=== PATIENT | female | born 2000 | race Caucasian/White ===

== ENCOUNTER 2022-12-14 17:36 | Inpatient (IN) | payer BC ==
[2022-12-14] MEDS ORDERED: MAGNESIUM HYDROXIDE 2,400 MG/30 ML CUP PO PRN (17:51)
[2022-12-14] MEDS ORDERED: MAG HYDROX/AL HYDROX/SIMETH 30 ML CUP PO PRN (17:51)
[2022-12-14] MEDS: hydrOXYzine pamoate 25 MG CAP PO PRN (22:05)
[2022-12-14] MEDS: busPIRone HCl 5 MG TAB PO SCH (22:05)
[2022-12-14] MEDS ORDERED: LORazepam 2 MG/ML INJ IM PRN (22:51)
[2022-12-14] MEDS: LORazepam 1 MG TAB PO PRN (23:17)
[2022-12-15] MEDS: ACETAMINOPHEN TAB 325 MG TAB PO PRN ×2 (00:37→08:55)
--- NOTE | 2022-12-15 04:03 | P.PN ---
Progress Note - Text Progress Note Date: 12/14/22 patient is heavily medicated and could not be evaluated at this time
[2022-12-15] MEDS: busPIRone HCl 5 MG TAB PO SCH ×2 (08:54→23:20)
[2022-12-15] MEDS: NALTREXONE HCL 50 MG TAB PO SCH (08:54)
[2022-12-15] MEDS: NICOTINE 14MG/24HR PATCH TRANSDERM SCH (08:55)
[2022-12-15] MEDS: LORazepam 1 MG TAB PO PRN ×2 (09:08→23:19)
--- NOTE | 2022-12-15 09:48 | P.HP ---
Psychiatric H&P - . H&P Date: 12/15/22 History & Physical: Allergies Allergy/AdvReac Type Severity Reaction Status Date / Time No Known Allergies Allergy Verified 12/14/22 17:48 Vital Signs Temp 98.3 F 12/14/22 21:49 Pulse 90 12/15/22 06:08 Resp BP 111/73 12/15/22 06:08 Pulse Ox 100 12/14/22 21:49 FiO2 Intake & Output 12/14/22 12/15/22 12/15/22 18:59 06:59 18:59 Weight 47 kg 48.081 kg 12/15/22 09:39 This is a psychiatric evaluation on Sravanthi Graham who is a 22-year-old female with a history of eating disorder Patient was transferred from [place] where she was brought to the ER after expressing suicidal ideations and plans Patient is very tearful and breaks down frequently and has difficulty giving adequate history Patient reports that she is been dealing with eating disorder since she was 8 years old She says that she is lost about 80 pounds and the for a while complaining about not being able to eat when she went to the dining room and was yelled by one of the other patients She blamed the patient for not letting her it and states that now the kitchen is closed She also admits that she has a tendency to exercise and indulge in bulimic behavior She is also on psychostimulants including Vyvanse and Adderall at the time of admission which she claims that her psychiatrist was giving her for depression and that it does not affect her eating disorder She says that she currently works in the bank as a campus chaplain and lives with a roommate She says that she is finished college and has no intention of going back She says that she is close to her mother who also lives in town She reports that she is mainly here because she has been using cannabis on a daily basis and that there is no help to be able to control her addiction Past history personal and social history Patient is unable to give any details due to her frequent crying spells and breaking down She admits however that she's been in treatment since age 8 She continues to rationalize and intellectualize about her taking psychostimulants Further details will be collected as the patient becomes more cooperative and able to focus on the questions asked Mental status examination: General Appearance: Patient appears to be stated age is alert, directable, and attempts to cooperate. Patient appears to have fair hygiene issue and curled up on the chair and continues to stop with poor eye contact Behavior: Patient is sitting up curled up and tearful Speech: Patient's speech is fluent with preoccupation and complaints about the other patient that would not let her eat Mood/Affect: Patient reports their mood is depressed and anxious, affect is congruent and constricted. Suicidality/Homicidality: Patient denies having any homicidal ideation intent or plan. Denies any suicidal ideations intent or plan at this time Perceptions: Patient denies any visual hallucinations and denies any auditory hallucinations Though content/process: There is evidence of the somatic delusions and possibly distorted body image patient appears to be rationalizing intellectualizing and is projecting Memory and concentration: AOX3, grossly intact for the purposes of this session. Can spell "WORLD" backwards Judgment and insight: poor STRENGTHS/WEAKNESSES: strength is that patient is resilient. Weakness is that patient has poor judgment and is impulsive INTELLECT: average IMPRESSIONS: Major depressive disorder recurrent acute Rule out persistent pervasive depressive disorder/dysthymia Eating disorder unspecified Personality disorder with cluster B traits PLAN: -Patient is admitted under voluntary status to [facility]HU for stabilization of psychiatric symptoms and safety. -Medications : The patient is currently on buspirone and hydroxyzine when necessary which will be continued at this time Patient was offered Remeron at bedtime which she declined Patient at this time refuses any other new medication to be started She did not seem to be too upset when was told that stimulants would not be continued -Ativan and Haldol PRN for agitation/aggression -Patient was informed of the risks, benefits and side effects of the medication and patient verbally consented to taking the medications. -Internal Medicine consult to perform medical evaluation and physical. -NRT - nicotine patch -SW on board for discharge planning. Encourage patient to participate in groups to work on coping skills. Jc Dempsey M.D. 12/15/2022
[2022-12-15] MEDS: IBUPROFEN 400 MG TAB PO PRN (12:55)
[2022-12-15] MEDS: hydrOXYzine pamoate 25 MG CAP PO PRN (23:20)
[2022-12-15 23:31] LABS: Chol/HDL Ratio 2.43 Ratio; LDL Cholesterol,Calculated 72.8 mg/dL (0.0-131.0); VLDL Calculation 13.56 mg/dL (5.00-40.00)
[2022-12-16] MEDS: NICOTINE 14MG/24HR PATCH TRANSDERM SCH (08:14)
[2022-12-16] MEDS: NALTREXONE HCL 50 MG TAB PO SCH (08:14)
[2022-12-16] MEDS: busPIRone HCl 5 MG TAB PO SCH (08:14)
[2022-12-16] MEDS: ARIPiprazole 5 MG TAB PO SCH (12:03)
--- NOTE | 2022-12-16 12:23 | P.PN ---
Progress Note - Text Progress Note Date: 12/16/22 Interval history: Patient was seen today and was agreeable to be seen by marine underwriter today. Patient was interacting with other patients in the group room. She appeared to be fairly pleasant during interaction. She spoke about using a significant amount of cannabis before coming in the hospital. States that she chronically feels suicidal and states that she was discharged to early from the previous hospital. She claimed that she overdosed on trazodone to get admitted back into the psychiatric unit. States that she is getting a lot out of the unit at this time and finding therapy helpful. She claims that she is still feeling anxious at times, states that her mood is still labile during the day. We spoke about switching onto a mood stabilizer which patient was okay with trying Abilify today. She claimed that she is able to sleep fairly at nighttime. She remains optimistic about her treatment. Claims her appetite is fair. At this time she is denying any current suicidal or homicidal ideation intent or plan. Denying any auditory or visual hallucinations. Mental status examination: General Appearance: [Patient appears to be fairly thin, well-groomed, stated age is alert, directable, and attempts to be cooperative.] Behavior: [Patient is calmly seated without any agitated behavior.] Times to cooperate. Speech: Patient's speech is fluent and nonpressured. Mood/Affect: Mood is improving mildly, affect is congruent and constricted. Suicidality/Homicidality: Patient denies having any suicidal or homicidal ideation intent or plan. Perceptions: Patient denies any visual hallucinations [and denies any auditory hallucinations] Though content/process: [There is no evidence of any delusional thought content and thought process is linear and goal-directed.] Focused on her treatment and medications. Memory and concentration: AOX3, grossly intact for the purposes of this session Judgment and insight: Improving mildly Assessment: Major depressive disorder recurrent without psych features Eating disorder unspecified cannabis use disorder severe borderline personality disorder nicotine dependence PLAN: -Patient is admitted under voluntary status to [facility] for stabilization of psychiatric symptoms and safety. -Medications : increase buspirone to 10 mg bid for anxiety, hydroxyzine when necessary for anxiety. continue with naltrexone 50 mg daily for cravings/impulsivity. abilify 2.5 mg daily for mood stabilization. trazodone 50 mg qhs for insomnia/mood. -Ativan and Haldol PRN for agitation/aggression -NRT - nicotine patch -SW on board for discharge planning. Encourage patient to participate in groups to work on coping skills. likely discharge in 1-2 days to her grandmothers LILA thomas looking into request by patient to go to [facility] program in [place].
[2022-12-16 12:44] VITALS: BMI 18.1
[2022-12-16] MEDS: NICOTINE GUM (POLACRILEX) 2 MG GUM BUCCAL PRN ×2 (13:41→18:29)
[2022-12-16] MEDS ORDERED: traZODone HCL 50 MG TAB PO SCH (21:00)
[2022-12-16] MEDS: busPIRone HCl 10 MG TAB PO SCH (21:36)
[2022-12-16] MEDS: LORazepam 1 MG TAB PO PRN (21:38)
[2022-12-16] MEDS: hydrOXYzine pamoate 25 MG CAP PO PRN (21:38)
[2022-12-17] MEDS: ARIPiprazole 5 MG TAB PO SCH (09:14)
[2022-12-17] MEDS: busPIRone HCl 10 MG TAB PO SCH ×2 (09:21→22:22)
[2022-12-17] MEDS: NALTREXONE HCL 50 MG TAB PO SCH (09:22)
[2022-12-17] MEDS: NICOTINE 14MG/24HR PATCH TRANSDERM SCH ×2 (09:22→10:14)
[2022-12-17] MEDS: IBUPROFEN 400 MG TAB PO PRN (09:30)
--- NOTE | 2022-12-17 09:58 | P.PN ---
Progress Note - Text Progress Note Date: 12/17/22 Interval history: Patient was seen today and was agreeable to be seen by writer producer today. Patient claims that she had a headache this morning. She states she did not sleep well last night and needed and Ativan to sleep due to many new patients being admitted overnight. She claims that she is feeling a bit better today claims that she was a little bit more stable with her mood throughout the day. Claims that she is tolerating the Abilify fairly well. States that she is trying to quit groups and participated best she can. States that she is incontinent in the routine, eating and also showering. We spoke about her medications and I answer questions. She remains optimistic about her treatment. Claims her appetite is fair. At this time she is denying any current suicidal or homicidal ideation intent or plan. Denying any auditory or visual hallucinations. Mental status examination: General Appearance: Patient appears to be fairly thin, well-groomed, stated age is alert, directable, and attempts to be cooperative. Behavior: Patient is calmly seated without any agitated behavior. Attempts to cooperate. Speech: Patient's speech is fluent and nonpressured. Mood/Affect: Mood is improving mildly, affect is congruent and constricted. Suicidality/Homicidality: Patient denies having any suicidal or homicidal ideation intent or plan. Perceptions: Patient denies any visual hallucinations and denies any auditory hallucinations Though content/process: There is no evidence of any delusional thought content and thought process is linear and goal-directed. Memory and concentration: AOX3, grossly intact for the purposes of this session Judgment and insight: Improving mildly Assessment: Major depressive disorder recurrent without psych features Eating disorder unspecified cannabis use disorder severe borderline personality disorder nicotine dependence PLAN: -Patient is admitted under voluntary status to [facility] for stabilization of psychiatric symptoms and safety. -Medications : buspirone 10 mg bid for anxiety, hydroxyzine when necessary for anxiety. continue with naltrexone 50 mg daily for cravings/impulsivity. increase abilify 5 mg daily for mood stabilization. d/c trazodone due to patient request and replace with remeron 15 mg qhs for insomnia/mood. -Ativan and Haldol PRN for agitation/aggression -NRT - nicotine patch -SW on board for discharge planning. Encourage patient to participate in groups to work on coping skills. likely discharge in 2-3 days to her grandmothers house[facility]ILA looking into request by patient to go to [facility] program in [place].
[2022-12-17] MEDS: NICOTINE GUM (POLACRILEX) 2 MG GUM BUCCAL PRN (14:27)
[2022-12-17] MEDS: MIRTAZAPINE 15 MG TAB PO SCH (22:22)
--- NOTE | 2022-12-18 06:20 | P.MDCNMH ---
History of Present Illness H&P Date: 12/18/22 Chief Complaint: Medical evaluation 22-year-old female she is coming in for evaluation due to depression and eating disorder she admits to both bulimia and anorexia she denies any suicidal ideation. Denies any hallucinations. The patient currently denies any medical concerns , denies any fever, chills, cough, sore throat, chest pain , trouble breathing , nausea , vomiting, abd pain , changes in urinary or bowel habits. She admits to tobacco smoking and occasional marijuana claims to be sober from alcohol for about a year review of systems Pertinent positives as noted in HPI. All other systems were reviewed and are negative on exam Constitutional: No acute distress Eyes: Anicteric sclerae, moist conjunctiva, Pupils equal round reactive to light Lungs: Clear to auscultation Clear to percussion Normal respiratory effort, no accessory muscle use Cardiovascular: Heart regular in rate and rhythm, No murmurs, gallops, or rubs No peripheral edema Abdominal: Soft Nontender, no guarding, rebound or rigidity Abdomen moving with respiration Normoactive bowel sounds Extremities: Erythema with sunburn effect over bilateral upper extremity in her lower extremity No clubbing Pedal pulses intact and symmetrical Radial pulses intact and symmetrical No calf tenderness Psychiatric: Alert and oriented to person, place and time Neuro Muscles Strength 5/5 in all 4 extremities Sensation to light touch grossly present throughout Past Medical History Additional Past Medical History / Comment(s): Malnutrition due to bulimia, Factor 5 clotting disorder, pancreatitis, mobility issues due to malnutrition. History of Any Multi-Drug Resistant Organisms: None Reported Past Surgical History: Unable to Obtain Past Anesthesia/Blood Transfusion Reactions: Unable to Obtain Past Psychological History: Anxiety, Depression Smoking Status: Current every day smoker Past Alcohol Use History: None Reported Past Drug Use History: Cocaine, Heroin, IV Drug Use, Marijuana, Opiates Medications and Allergies Allergies Allergy/AdvReac Type Severity Reaction Status Date / Time No Known Allergies Allergy Verified 12/14/22 17:48 Cranial Nerve Examination - Cranial Nerves Cranial Nerve II- Optic: Intact Cranial Nerve III- Oculomotor: Intact Cranial Nerve IV- Trochlear: Intact Cranial Nerve V- Trigeminal: Intact Cranial Nerve - Abducens: Intact Cranial Nerve VII- Facial: Intact Cranial Nerve VIII- Auditory: Intact Cranial Nerve IX- Glossopharyngeal: Intact Cranial Nerve X- Vagus: Intact Cranial Nerve XI- Accessory: Intact Cranial Nerve XII- Hypoglossal: Intact Assessment and Plan Assessment: Eating disorders bulimia and anorexia Depression Management per psych Tobacco smoking Counseled to quit smoking Nicotine replacement therapy offered Blood work reviewed Lipid profile unremarkable HDL 60 TSH 0.6 unremarkable Stable from medical standpoint Thank you for this consultation
[2022-12-18] MEDS: NICOTINE 14MG/24HR PATCH TRANSDERM SCH (08:55)
[2022-12-18] MEDS: NALTREXONE HCL 50 MG TAB PO SCH (08:56)
[2022-12-18] MEDS: ARIPiprazole 5 MG TAB PO SCH (08:56)
[2022-12-18] MEDS: busPIRone HCl 10 MG TAB PO SCH ×2 (08:56→22:26)
[2022-12-18] MEDS: NICOTINE GUM (POLACRILEX) 2 MG GUM BUCCAL PRN ×2 (09:40→18:25)
--- NOTE | 2022-12-18 10:13 | P.PN ---
Progress Note - Text Progress Note Date: 12/18/22 Interval history: Patient was seen today and was agreeable to be seen by auto service writer today. Patient claims that she is doing a bit better today. She states that she was able to sleep about 6-7 hours last night with the Remeron added. She claims that she did eat more of her meals today. Claims that she is interacting well with other people however was disrupted by a different patient today that was flipping chairs. She claimed that her mood and anxiety of also been improving. States that now she wants to go to her friend's house and stay with her upon discharge. We spoke more about her medications and I answer questions. She remains optimistic about her treatment. Claims her appetite is fair. At this time she is denying any current suicidal or homicidal ideation intent or plan. Denying any auditory or visual hallucinations. Mental status examination: General Appearance: Patient appears to be fairly thin, well-groomed, stated age is alert, directable, and attempts to be cooperative. Behavior: Patient is calmly seated without any agitated behavior. Attempts to cooperate. Pleasant. Speech: Patient's speech is fluent and nonpressured. Mood/Affect: Mood is improving mildly, affect is congruent and constricted. Suicidality/Homicidality: Patient denies having any suicidal or homicidal ideation intent or plan. Perceptions: Patient denies any visual hallucinations and denies any auditory hallucinations Though content/process: There is no evidence of any delusional thought content and thought process is linear and goal-directed. Memory and concentration: AOX3, grossly intact for the purposes of this session Judgment and insight: Improving mildly Assessment: Major depressive disorder recurrent without psych features Eating disorder unspecified cannabis use disorder severe borderline personality disorder nicotine dependence PLAN: -Patient is admitted under voluntary status to [facility] for stabilization of psychiatric symptoms and safety. -Medications : buspirone 10 mg bid for anxiety, hydroxyzine when necessary for anxiety. continue with naltrexone 50 mg daily for cravings/impulsivity. abilify 5 mg daily for mood stabilization, remeron 15 mg qhs for insomnia/mood. -Ativan and Haldol PRN for agitation/aggression -NRT - nicotine patch -SW on board for discharge planning. Encourage patient to participate in groups to work on coping skills. Patient did phone screening with [facility] over the phone yesterday. likely discharge tomorrow to [facility], to call and confirm safety and flower picker.
[2022-12-18] MEDS: MIRTAZAPINE 15 MG TAB PO SCH (22:26)
[2022-12-18] MEDS: LORazepam 1 MG TAB PO PRN (22:27)
[2022-12-19 07:18] VITALS: BP 115/72; PULSE 59; RESP 14; TEMP 98.2
[2022-12-19] MEDS: NICOTINE GUM (POLACRILEX) 2 MG GUM BUCCAL PRN ×2 (09:22→18:27)
[2022-12-19] MEDS: NALTREXONE HCL 50 MG TAB PO SCH (09:22)
[2022-12-19] MEDS: NICOTINE 14MG/24HR PATCH TRANSDERM SCH (09:22)
[2022-12-19] MEDS: ARIPiprazole 5 MG TAB PO SCH (09:22)
[2022-12-19] MEDS: busPIRone HCl 10 MG TAB PO SCH (09:22)
--- NOTE | 2022-12-19 10:19 | P.DS ---
Providers Date of admission: 12/14/22 21:39 Expected date of discharge: 12/19/22 Attending physician: Alex Gibbons MD Consults: 12/14/22 17:51 Consult Physician Routine Consulting Provider: Leon Haile Consult Reason/Comments: medical management Do you want consulting provider notified?: Yes Primary care physician: Stated None - Discharge Diagnosis(es) (1) Major depressive disorder without psychotic features Current Visit: Yes Status: Acute Priority: High (2) Overdose by ingestion Current Visit: Yes Status: Acute Priority: High (3) Eating disorder, unspecified Current Visit: Yes Status: Acute Priority: Medium (4) Cannabis use disorder, severe, dependence Current Visit: Yes Status: Acute Priority: High (5) Borderline personality disorder Current Visit: Yes Status: Acute Priority: Medium (6) Nicotine dependence Current Visit: Yes Status: Acute Priority: Low Hospital Course: Admission HPI: Admission note was completed by Dr Lerma "This is a psychiatric evaluation on Sravanthi Garham who is a 22-year-old female with a history of eating disorder Patient was transferred from [place] where she was brought to the ER after expressing suicidal ideations and plans Patient is very tearful and breaks down frequently and has difficulty giving adequate history Patient reports that she is been dealing with eating disorder since she was 8 years old She says that she is lost about 80 pounds and the for a while complaining about not being able to eat when she went to the dining room and was yelled by one of the other patients She blamed the patient for not letting her it and states that now the kitchen is closed She also admits that she has a tendency to exercise and indulge in bulimic behavior She is also on psychostimulants including Vyvanse and Adderall at the time of admission which she claims that her psychiatrist was giving her for depression and that it does not affect her eating disorder She says that 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 Patient got along well with other patients on the unit and followed unit protocol. Patient was compliant with the medications and denied any side effects throughout hospital course. Patient was started on Abilify and increased her dose of 5 mg daily for mood stabilization, BuSpar 10 mg twice a day for anxiety, naltrexone 50 mg daily by mouth for cravin gs/impulsivity, remeron 15 mg qhs for insomnia/mood, vistaril prn for anxiety. Patient spoke of her stressors and engaged in therapy both group and individual. Patient was also seen by medical team for history and physical exam. Throughout the course of the hospitalization patient gradually improved with regards to mood, anxiety, suicidal thoughts, sleep and became more future oriented with improved insight and judgment. On the day of discharge patient denied any suicidal or homicidal ideations intent or plan denied any auditory or visual hallucinations. Patient endorsed wanting to live for her health and future. The patient denied any access to guns or weapons. Patient denied any paranoia and did not endorse any delusions. Patient does have a significant history of substance abuse and was counseled on abstaining from all substances including alcohol and marijuana. Patient elected to do outpatient substance use treatment program through [facility]. Patient was also counseled on the medications and need for regular compliance and was encouraged to follow-up with their outpatient appointment for mental health and also for primary care. Prior to discharge a family meeting will be arranged by perinatal social worker to answer any questions and ensure safety upon discharge. PAtient will be ultimately staying with a friend for the time being upon discharge. Mental status exam: General Appearance: Patient appears to be thin, stated age is alert, pleasant, and cooperative. Patient is in no acute distress and has improved hygiene and grooming Behavior: Patient is calmly seated without any agitated behavior. Speech: Patient's speech is fluent and nonpressured. Mood/Affect: Patient reports their mood is "good", affect is congruent and euthymic. Suicidality/Homicidality: Patient denies having any suicidal or homicidal ideation intent or plan. Perceptions: Patient denies any auditory or visual hallucinations. Though content/process: There is no evidence of any delusional thought content and thought process is linear and goal-directed. more future oriented Memory and concentration: AOX3, grossly intact for the purposes of this session. Can spell "WORLD" backwards correctly. Judgment and insight: improved with guarded prognosis Impression: Major depressive disorder without psychotic features Overdose by ingestion Eating disorder unspecified Cannabis use disorder severe Borderline personality disorder Nicotine dependence Plan: -Continue with discharge today as patient has improved and stabilized psychiatrically and is not currently an imminent threat to herself and/or others. Patient will remain at chronically elevated risk for harm to self and/or others due to his impulsivity and substance abuse. -Continue medications: BuSpar 10 mg twice a day for anxiety, Vistaril daily when necessary for anxiety, naltrexone by mouth 50 mg daily for cravings/impulsivity, Abilify 5 mg daily for mood stabilization, Remeron 15 mg daily at bedtime for insomnia/mood -Patient was counseled on the need for medication compliance and appropriate follow-up at mental health and also primary care for medical issues. Patient verbalized understanding and agreed. -Social work to arrange for and conduct family meeting to ensure safety upon discharge and answer any questions/concerns. Social work also to arrange for patients follow up appointments for psychiatric care along with follow up with primary care provider. -Patient counseled on abstaining from recreational drugs and marijuana and alcohol. Was informed/educated on the adverse effects on their physical and mental health. Patient verbally agreed and understood. -Patient was instructed to return to the hospital or seek immediate medical care if their psychiatric or medical symptoms do worsen or reoccur. Allergies Allergy/AdvReac Type Severity Reaction Status Date / Time No Known Allergies Allergy Verified 12/14/22 17:[address] Glu mg/dL 105 mg/dL 12/15/22 11:26 Hemoglobin A1c 5.3 % (<=6.0) 12/15/22 11:26 Triglycerides 67.80 mg/dL (0.00-149.00) 12/15/22 11:26 Cholesterol 147.00 mg/dL (0.00-200.00) 12/15/22 11:26 LDL Cholesterol, Calc 72.8 mg/dL (0.0-131.0) 12/15/22 11:26 VLDL Cholesterol, Calc 13.56 mg/dL (5.00-40.00) 12/15/22 11:26 HDL Cholesterol 60.60 mg/dL (40.00-60.00) H 12/15/22 11:26 Cholesterol/HDL Ratio 2.43 Ratio 12/15/22 11:26 TSH 0.660 mIU/L (0.465-4.680) 12/15/22 11:26 Vital Signs Temp 98.2 F 12/19/22 06:42 Pulse 59 L 12/19/22 06:42 Resp 14 12/19/22 06:42 BP 115/72 12/19/22 06:42 Pulse Ox 98 12/17/22 06:00 FiO2 Intake & Output 12/18/22 12/19/22 12/19/22 18:59 06:59 18:59 Weight 48.081 kg Patient Condition at Discharge: Stable Plan - Discharge Summary New Discharge Prescriptions: New ARIPiprazole [Abilify] 5 mg PO DAILY 14 Days #14 tab Nicotine 14Mg/24Hr Patch [Habitrol] 1 patch TRANSDERM DAILY 14 Days #14 patch Nicotine Gum (Polacrilex) [Nicorette] 2 mg BUCCAL Q4HR PRN 30 Days #180 pieceofgum PRN Reason: Nicotine Cravings Mirtazapine [Remeron] 15 mg PO HS 14 Days #14 tab Naltrexone HCl [Revia] 50 mg PO DAILY 14 Days #14 tab Acetaminophen Tab [Tylenol] 650 mg PO Q4HR PRN tab PRN Reason: Mild Pain (Scale 1 To 3) hydrOXYzine pamoate [Vistaril] 25 mg PO DAILY PRN 14 Days #14 cap PRN Reason: Agitation Or Acute Psychosis busPIRone HCl [Buspar] 10 mg PO BID 14 Days #28 tab Ibuprofen [Motrin] 400 mg PO TID PRN tab PRN Reason: Breakthrough Pain Discharge Medication List ARIPiprazole [Abilify] 5 mg PO DAILY 14 Days #14 tab 12/19/22 [Rx] Acetaminophen Tab [Tylenol] 650 mg PO Q4HR PRN tab 12/19/22 [Rx] Ibuprofen [Motrin] 400 mg PO TID PRN tab 12/19/22 [Rx] Mirtazapine [Remeron] 15 mg PO HS 14 Days #14 tab 12/19/22 [Rx] Naltrexone HCl [Revia] 50 mg PO DAILY 14 Days #14 tab 12/19/22 [Rx] Nicotine 14Mg/24Hr Patch [Habitrol] 1 patch TRANSDERM DAILY 14 Days #14 patch 12/19/22 [Rx] Nicotine Gum (Polacrilex) [Nicorette] 2 mg BUCCAL Q4HR PRN 30 Days #180 pieceofgum 12/19/22 [Rx] busPIRone HCl [Buspar] 10 mg PO BID 14 Days #28 tab 12/19/22 [Rx] hydrOXYzine pamoate [Vistaril] 25 mg PO DAILY PRN 14 Days #14 cap 12/19/22 [Rx] Follow up Appointment(s)/Referral(s): [facility] [Other] - 12/25/22 2:00 pm Activity/Diet/Wound Care/Special Instructions: Avoid the use of street drugs and alcohol. Take all medications as prescribed. When you are in need of refills on your medications, please contact your medical provider and/or outpatient psychiatrist/provider to have this done. Please go to your scheduled outpatient appointment for aftercare treatment. If symptoms return or become worse, call the crisis line at and/or go to the nearest emergency room for evaluation. National Suicide Hotline 958. Discharge Disposition: HOME SELF-CARE
[2022-12-19] MEDS: LORazepam 1 MG TAB PO PRN (13:40)
== END 2022-12-19 19:21 | disposition home or self-care (01) | DRG 885 ==
LOC: 3MHU 21:39
PROVIDERS: ADMIT Psychiatry & Neurology Psychiatry; ATTEND Psychiatry & Neurology Psychiatry
DX: F33.9 Major depressive disorder, recurrent, unspecified (principal); R45.851 Suicidal ideations; F50.2 Bulimia nervosa; Z68.1 Body mass index [BMI] 19.9 or less, adult; D68.51 Activated protein C resistance; T43.212A Poisoning by selective serotonin and norepinephrine reuptake inhibitors, intentional self-harm, initial encounter; F14.11 Cocaine abuse, in remission; F11.11 Opioid abuse, in remission; R32 Unspecified urinary incontinence; F41.9 Anxiety disorder, unspecified; G47.00 Insomnia, unspecified; F60.3 Borderline personality disorder; F12.20 Cannabis dependence, uncomplicated; F17.200 Nicotine dependence, unspecified, uncomplicated; Z79.899 Other long term (current) drug therapy; Z71.3 Dietary counseling and surveillance; Z71.6 Tobacco abuse counseling
CPT/HCPCS: 80061; 83036; 84443